=== PATIENT | male | born 1990 | race Caucasian/White ===

== ENCOUNTER 2021-05-15 05:31 | Inpatient (IN) | payer SELFPAY ==
[2021-05-15 06:00] VITALS: BMI 18.6
[2021-05-15] MEDS ORDERED: Dextrose 5 %-0.45 % NaCl 1,000 ML IV PRN (06:40)
[2021-05-15] MEDS ORDERED: D5 1/2 NS w/20 mEq KCL 1,000 ML IV PRN (06:40)
[2021-05-15] MEDS ORDERED: NS 0.9% w/ 20 MEQ KCL 1,000 ML IV PRN ×2 (06:40)
[2021-05-15] MEDS ORDERED: Sodium Chloride 0.9% 1,000 ML IV PRN ×4 (06:40)
[2021-05-15] MEDS ORDERED: Electrolyte Replacement Protocol 1 EACH IVPB SCH (06:40)
[2021-05-15] MEDS ORDERED: Morphine 2 MG/ML VIAL SLOW IVP PRN (06:41)
[2021-05-15] MEDS ORDERED: Morphine 4 MG/ML VIAL ONE (06:42)
[2021-05-15] MEDS ORDERED: HUMULIN R 100 UNITS in Sodium Chloride 0.9% 100 ML IVPB SCH (06:45)
[2021-05-15 07:29] LABS: Anion Gap 14 mmol/L (10-20); BUN (Urea Nitrogen) 5 mg/dL (8.9-20.6); Calc. Creatinine Clearance 135 mL/min (70-130); Calcium 8.6 mg/dL (7.8-10.44); Carbon Dioxide 10 mmol/L (22-29); Chloride 115 mmol/L (98-107); Glucose 169 mg/dL (70-105); Sodium 136 mmol/L (136-145)
[2021-05-15 07:34] LABS: Troponin I Less than 0.010 ng/mL (< 0.028)
[2021-05-15 07:44] LABS: Potassium 2.6 mmol/L (3.5-5.1)
[2021-05-15] MEDS ORDERED: Ondansetron PF 4 MG/2 ML Vial IVP PRN (08:07)
[2021-05-15] MEDS: Nicotine 21 MG PATCH TD SCH (08:36)
[2021-05-15 09:15] LABS: Hemoglobin 13.5 g/dL (14.0-18.0); Mean Corpuscular HGB CONC 35.1 g/dL (32.0-36.0); Mean Corpuscular Hemoglobin 34.9 pg (27.0-31.0); Mean Corpuscular Volume 99.5 fL (78.0-98.0); Mean Platelet Volume 10.5 fL (7.4-10.4); Platelet Count 169 thou/uL (130-400); RBC Distribution Width 12.3 % (11.5-14.5); Red Blood Cell (RBC) Count 3.85 mill/uL (4.70-6.10); White Blood Cell (WBC) Count 5.5 thou/uL (4.8-10.8)
[2021-05-15 09:44] LABS: Anion Gap 13 mmol/L (10-20); BUN (Urea Nitrogen) 6 mg/dL (8.9-20.6); Calc. Creatinine Clearance 135 mL/min (70-130); Calcium 8.4 mg/dL (7.8-10.44); Carbon Dioxide 10 mmol/L (22-29); Chloride 115 mmol/L (98-107); Glucose 231 mg/dL (70-105); Sodium 135 mmol/L (136-145)
[2021-05-15 09:46] LABS: Band 15 % (5-11); Eosinophils 3 % (0-10); Lymphocytes 10 % (21-51); MDiff Complete? YES; Metamyelocyte 1 % (0-0); Monocytes 15 % (0-10); Myelocyte 2 % (0-0); Neutrophil 54 % (42-75); Platelet Morphology Comment Appears Adequate; RBC Morphology Normal
[2021-05-15 09:55] LABS: Potassium 2.6 mmol/L (3.5-5.1)
[2021-05-15] MEDS ORDERED: Nitroglycerin 0.4 MG TAB (25 Tab Bottle) SL PRN (10:50)
[2021-05-15] MEDS ORDERED: Aspirin 325 MG TAB PO SCH (11:00)
[2021-05-15] MEDS ORDERED: Potassium Chloride 40 MEQ in Sodium Chloride 0.9% 250 ML 250 ML IVPB SCH (11:30)
[2021-05-15] MEDS ORDERED: Enoxaparin Sodium 40 MG/0.4 ML SYRINGE ONE (12:44)
[2021-05-15] MEDS ORDERED: Potassium Chloride 20 MEQ TAB ONE ×3 (12:44→20:24)
[2021-05-15] MEDS: Enoxaparin Sodium 40 MG/0.4 ML SYRINGE SC SCH (12:48)
[2021-05-15] MEDS ORDERED: Potassium Chloride 20 MEQ TAB PO SCH ×2 (13:00→16:00)
[2021-05-15] MEDS: Potassium Chloride 40 MEQ in Sodium Chloride 0.9% 250 ML 250 ML IVPB SCH ×2 (15:08→15:09)
[2021-05-15 15:36] LABS: ALT (SGPT) 9 U/L (8-55); AST (SGOT) 12 U/L (5-34); Albumin 3.3 g/dL (3.5-5.0); Alkaline Phosphatase 113 U/L (40-110); Anion Gap 12 mmol/L (10-20); BUN (Urea Nitrogen) 5 mg/dL (8.9-20.6); Bilirubin, Total 0.4 mg/dL (0.2-1.2); Calc. Creatinine Clearance 127 mL/min (70-130); Calcium 8.5 mg/dL (7.8-10.44); Carbon Dioxide 16 mmol/L (22-29); Chloride 112 mmol/L (98-107); Globulin 2.9 g/dL (2.4-3.5); Glucose 183 mg/dL (70-105); Protein, Total 6.2 g/dL (6.0-8.3); Sodium 137 mmol/L (136-145)
[2021-05-15 15:49] LABS: Potassium 2.9 mmol/L (3.5-5.1)
[2021-05-15] MEDS ORDERED: Aspirin 325 MG TAB ONE (17:33)
[2021-05-15] MEDS ORDERED: Dextrose 5% in Water 1,000 ML IV PRN (18:47)
[2021-05-15] MEDS ORDERED: Dextrose 50% Abboject 50 ML SYRINGE SLOW IVP PRN (18:47)
[2021-05-15 18:58] LABS: Anion Gap 7 mmol/L (10-20); BUN (Urea Nitrogen) 5 mg/dL (8.9-20.6); Calc. Creatinine Clearance 139 mL/min (70-130); Calcium 8.7 mg/dL (7.8-10.44); Carbon Dioxide 20 mmol/L (22-29); Chloride 112 mmol/L (98-107); Glucose 123 mg/dL (70-105); Sodium 136 mmol/L (136-145)
[2021-05-15] MEDS ORDERED: NPH, Human Insulin Isophane 300 UNIT/3 ML VIAL SC SCH (19:00)
[2021-05-15 19:01] LABS: Potassium 2.9 mmol/L (3.5-5.1)
[2021-05-15] MEDS: 1/2 NS w/KCL 20 mEq 1,000 ML IV SCH (19:18)
[2021-05-15] MEDS ORDERED: D5 1/2 NS w/20 mEq KCL 1,000 ML ONE (19:48)
[2021-05-15] MEDS ORDERED: INSULIN REGULAR IN 0.9 % NACL 100 UNIT/100 ML BAG ONE (20:13)
[2021-05-15] MEDS: Potassium Chloride 20 MEQ TAB PO SCH ×2 (20:21→23:36)
[2021-05-15] MEDS ORDERED: HumaLOG 300 UNITS/3 ML VIAL ONE (21:09)
[2021-05-15] MEDS: HumaLOG 300 UNITS/3 ML VIAL SC PRN (21:10)
[2021-05-15 23:47] LABS: Anion Gap 12 mmol/L (10-20); BUN (Urea Nitrogen) 5 mg/dL (8.9-20.6); Calc. Creatinine Clearance 133 mL/min (70-130); Calcium 8.6 mg/dL (7.8-10.44); Carbon Dioxide 17 mmol/L (22-29); Chloride 111 mmol/L (98-107); Glucose 173 mg/dL (70-105); Sodium 137 mmol/L (136-145)
[2021-05-15 23:54] LABS: Potassium 2.9 mmol/L (3.5-5.1)
[2021-05-16] MEDS: HumaLOG 300 UNITS/3 ML VIAL SC PRN ×4 (00:43→21:24)
[2021-05-16] MEDS: Potassium Chloride 40 MEQ in Sodium Chloride 0.9% 250 ML 250 ML IVPB SCH ×2 (00:43→06:04)
[2021-05-16] MEDS: 1/2 NS w/KCL 20 mEq 1,000 ML IV SCH ×3 (03:58→21:24)
[2021-05-16 04:35] LABS: Anion Gap 8 mmol/L (10-20); BUN (Urea Nitrogen) 5 mg/dL (8.9-20.6); Calc. Creatinine Clearance 129 mL/min (70-130); Calcium 8.8 mg/dL (7.8-10.44); Carbon Dioxide 21 mmol/L (22-29); Chloride 111 mmol/L (98-107); Glucose 213 mg/dL (70-105); Potassium 3.3 mmol/L (3.5-5.1); Sodium 137 mmol/L (136-145)
[2021-05-16] MEDS ORDERED: HumaLOG 300 UNITS/3 ML VIAL SC SCH (08:00)
[2021-05-16] MEDS: Aspirin 325 mg Enteric Coated Tablet PO SCH (08:38)
[2021-05-16] MEDS: Nicotine 21 MG PATCH TD SCH (08:40)
[2021-05-16] MEDS: Enoxaparin Sodium 40 MG/0.4 ML SYRINGE SC SCH (08:42)
[2021-05-16] MEDS ORDERED: Potassium Chloride 20 MEQ TAB PO SCH ×2 (08:45→13:15)
[2021-05-16] MEDS ORDERED: Potassium Chloride 40 MEQ in Sodium Chloride 0.9% 250 ML 250 ML IVPB SCH (08:45)
[2021-05-16] MEDS ORDERED: NPH, Human Insulin Isophane 300 UNIT/3 ML VIAL SC SCH (09:00)
[2021-05-16 12:52] LABS: Potassium 3.1 mmol/L (3.5-5.1)
[2021-05-16] MEDS: HumaLOG 300 UNITS/3 ML VIAL SC SCH (18:18)
[2021-05-17] MEDS: HumaLOG 300 UNITS/3 ML VIAL SC PRN ×2 (03:58→20:25)
[2021-05-17 04:27] LABS: Anion Gap 11 mmol/L (10-20); BUN (Urea Nitrogen) 5 mg/dL (8.9-20.6); Calc. Creatinine Clearance 124 mL/min (70-130); Calcium 8.8 mg/dL (7.8-10.44); Carbon Dioxide 25 mmol/L (22-29); Chloride 106 mmol/L (98-107); Glucose 254 mg/dL (70-105); Potassium 3.1 mmol/L (3.5-5.1); Sodium 139 mmol/L (136-145)
[2021-05-17] MEDS: 1/2 NS w/KCL 20 mEq 1,000 ML IV SCH ×3 (05:12→23:22)
[2021-05-17] MEDS ORDERED: Potassium Chloride 20 MEQ TAB PO SCH (06:45)
[2021-05-17] MEDS: Aspirin 325 mg Enteric Coated Tablet PO SCH (08:16)
[2021-05-17] MEDS: Enoxaparin Sodium 40 MG/0.4 ML SYRINGE SC SCH (08:17)
[2021-05-17] MEDS: HumaLOG 300 UNITS/3 ML VIAL SC SCH ×2 (08:47→17:46)
[2021-05-17 09:11] LABS: Hemoglobin A1c 12.7 % (4.0-6.0)
[2021-05-17] MEDS: Lantus 1000 UNITS/10 ML VIAL SC SCH (09:34)
[2021-05-17] MEDS: Nicotine 21 MG PATCH TD SCH (09:37)
[2021-05-18 04:11] LABS: Anion Gap 12 mmol/L (10-20); BUN (Urea Nitrogen) 8 mg/dL (8.9-20.6); Calc. Creatinine Clearance 137 mL/min (70-130); Calcium 8.7 mg/dL (7.8-10.44); Carbon Dioxide 25 mmol/L (22-29); Chloride 103 mmol/L (98-107); Glucose 184 mg/dL (70-105); Potassium 3.4 mmol/L (3.5-5.1); Sodium 137 mmol/L (136-145)
[2021-05-18] MEDS: 1/2 NS w/KCL 20 mEq 1,000 ML IV SCH (06:41)
[2021-05-18] MEDS: HumaLOG 300 UNITS/3 ML VIAL SC SCH (07:42)
[2021-05-18] MEDS: Enoxaparin Sodium 40 MG/0.4 ML SYRINGE SC SCH (07:42)
[2021-05-18] MEDS: Aspirin 325 mg Enteric Coated Tablet PO SCH (07:42)
[2021-05-18] MEDS: Lantus 1000 UNITS/10 ML VIAL SC SCH (07:43)
[2021-05-18] MEDS: Nicotine 21 MG PATCH TD SCH (09:37)
[2021-05-18 12:35] VITALS: BP 92/54; TEMP 98.6
[2021-05-18] MEDS: HumaLOG 300 UNITS/3 ML VIAL SC PRN (12:41)
[2021-05-18] MEDS ORDERED: Potassium Chloride 20 MEQ TAB PO SCH (13:45)
== END 2021-05-18 17:48 | disposition home or self-care (01) | DRG 638 ==
LOC: ERHOLD 05:31 → ONC 22:25
PROVIDERS: ADMIT Student in an Organized Health Care Education/Training Program; ATTEND Internal Medicine
DX: E10.10 Type 1 diabetes mellitus with ketoacidosis without coma (principal); F84.5 Asperger's syndrome; Z79.4 Long term (current) use of insulin; F17.210 Nicotine dependence, cigarettes, uncomplicated; E87.6 Hypokalemia; R07.81 Pleurodynia
CPT/HCPCS: 36415; 36416; 80048; 83036; 84484; 85025; 93005; 93010; J1650; J1815; J2270; J3480; J7050

== ENCOUNTER 2021-08-18 17:37 | Inpatient (IN) | payer SELFPAY ==
[2021-08-18 18:12] LABS: #Basophils 0.1 thou/uL (0.0-0.2); #Eosinphils 0.1 thou/uL (0.0-0.7); #Lymphocytes 1.2 thou/uL (1.20-3.40); #Monocytes 0.8 thou/uL (0.11-0.59); #Neutrophils 5.3 thou/uL (1.40-6.50); %Basophils 0.7 % (0.0-1.0); %Eosinophils 1.8 % (0.0-10.0); %Lymphocytes 15.4 % (21.0-51.0); %Monocytes 11.3 % (0.0-10.0); %Neutrophils 70.8 % (42.0-75.0); Hemoglobin 12.8 g/dL (14.0-18.0); Mean Corpuscular HGB CONC 35.7 g/dL (32.0-36.0); Mean Corpuscular Hemoglobin 33.7 pg (27.0-31.0); Mean Corpuscular Volume 94.3 fL (78.0-98.0); Mean Platelet Volume 8.8 fL (7.4-10.4); Platelet Count 218 thou/uL (130-400); RBC Distribution Width 12.4 % (11.5-14.5); Red Blood Cell (RBC) Count 3.81 mill/uL (4.70-6.10); White Blood Cell (WBC) Count 7.5 thou/uL (4.8-10.8)
[2021-08-18 18:34] LABS: ALT (SGPT) 8 U/L (8-55); AST (SGOT) 8 U/L (5-34); Alkaline Phosphatase 96 U/L (40-110); Anion Gap 15 mmol/L (10-20); BUN (Urea Nitrogen) 13 mg/dL (8.9-20.6); Bilirubin, Total 0.2 mg/dL (0.2-1.2); Calc. Creatinine Clearance 0 mL/min (70-130); Carbon Dioxide 10 mmol/L (22-29); Chloride 113 mmol/L (98-107); Glucose 166 mg/dL (70-105); Sodium 135 mmol/L (136-145)
[2021-08-18 18:40] LABS: Potassium 2.6 mmol/L (3.5-5.1)
[2021-08-18] MEDS ORDERED: D5 1/2 NS w/20 mEq KCL 1,000 ML ONE (18:57)
[2021-08-18] MEDS ORDERED: D5 1/2 NS w/20 mEq KCL 1,000 ML IV PRN (19:00)
[2021-08-18] MEDS ORDERED: Potassium Chloride 20 MEQ TAB ONE (19:39)
[2021-08-18] MEDS ORDERED: Sodium Chloride 0.9% 1,000 ML IV PRN (19:51)
[2021-08-18] MEDS ORDERED: Dextrose 5% in Water 1,000 ML IV PRN (19:51)
[2021-08-18] MEDS ORDERED: Electrolyte Replacement Protocol 1 EACH IVPB SCH (19:51)
[2021-08-18] MEDS ORDERED: Dextrose 50% Abboject 50 ML SYRINGE SLOW IVP PRN (19:51)
[2021-08-18] MEDS ORDERED: Dextrose 5 %-0.45 % NaCl 1,000 ML IV PRN (19:51)
[2021-08-18] MEDS ORDERED: Ondansetron PF 4 MG/2 ML Vial IVP PRN (19:53)
[2021-08-18] MEDS ORDERED: Acetaminophen 650 MG Suppository PR PRN (19:53)
[2021-08-18] MEDS ORDERED: Acetaminophen 325 MG TAB PO PRN (19:53)
[2021-08-18] MEDS ORDERED: Ondansetron ODT 4 MG TAB PO PRN (19:53)
[2021-08-18] MEDS ORDERED: Potassium Chloride 20 MEQ in Premix Bag 1 BAG IVPB SCH (20:00)
[2021-08-18] MEDS ORDERED: HUMULIN R 100 UNITS in Sodium Chloride 0.9% 100 ML IVPB SCH (20:00)
[2021-08-18 20:16] LABS: Lactic Acid 0.8 mmol/L (0.5-2.2)
[2021-08-18 20:21] LABS: Anion Gap 13 mmol/L (10-20); BUN (Urea Nitrogen) 11 mg/dL (8.9-20.6); Calc. Creatinine Clearance 0 mL/min (70-130); Calcium 7.9 mg/dL (7.8-10.44); Carbon Dioxide 13 mmol/L (22-29); Chloride 112 mmol/L (98-107); Glucose 169 mg/dL (70-105); Magnesium 1.8 mg/dL (1.6-2.6); Sodium 135 mmol/L (136-145)
[2021-08-18 20:24] LABS: Potassium 2.7 mmol/L (3.5-5.1)
[2021-08-18 20:25] LABS: Phosphorus Less than 1.0 mg/dL (2.3-4.7)
[2021-08-18] MEDS ORDERED: Potassium Chloride 20 MEQ TAB PO SCH (21:15)
[2021-08-18] MEDS: Sodium Chloride 0.9% 1,000 ML IV SCH (21:15)
[2021-08-18 21:48] VITALS: BMI 19.5
[2021-08-18 23:34] LABS: Anion Gap 18 mmol/L (10-20); BUN (Urea Nitrogen) 10 mg/dL (8.9-20.6); Calc. Creatinine Clearance 95 mL/min (70-130); Calcium 8.2 mg/dL (7.8-10.44); Chloride 112 mmol/L (98-107); Glucose 376 mg/dL (70-105); Potassium 3.9 mmol/L (3.5-5.1); Sodium 135 mmol/L (136-145)
[2021-08-18 23:40] LABS: Carbon Dioxide 9 mmol/L (22-29)
[2021-08-18] MEDS ORDERED: Potassium Phosphate 30 MMOL in Sodium Chloride 0.9% 250 ML 250 ML IVPB SCH (23:59)
[2021-08-19] MEDS: D5 1/2 NS w/20 mEq KCL 1,000 ML IV PRN ×2 (04:12→08:20)
[2021-08-19 04:32] LABS: Anion Gap 10 mmol/L (10-20); BUN (Urea Nitrogen) 8 mg/dL (8.9-20.6); Calc. Creatinine Clearance 121 mL/min (70-130); Calcium 8.4 mg/dL (7.8-10.44); Carbon Dioxide 15 mmol/L (22-29); Chloride 115 mmol/L (98-107); Glucose 193 mg/dL (70-105); Potassium 3.3 mmol/L (3.5-5.1); Sodium 137 mmol/L (136-145)
[2021-08-19] MEDS ORDERED: Potassium Chloride 20 MEQ TAB PO SCH (05:30)
[2021-08-19] MEDS: Sodium Chloride 0.9% 1,000 ML IV SCH ×2 (07:11→18:26)
[2021-08-19] MEDS ORDERED: Magnesium Sulfate 2 GM in Sodium Chloride 0.9% 100 ML IVPB SCH (09:00)
[2021-08-19] MEDS ORDERED: FLU VACC QS2021-22(6MOS UP)/PF 60 MCG/0.5 ML SYRINGE IM ONE (09:00)
[2021-08-19] MEDS ORDERED: Magnesium 2 GM/50 ML 2 GM in Premix Bag 1 BAG IVPB SCH (09:00)
[2021-08-19] MEDS ORDERED: cefTRIAXone Sodium 2,000 MG in Syringe 0 ML IVPB SCH (09:15)
[2021-08-19 09:47] LABS: Anion Gap 9 mmol/L (10-20); BUN (Urea Nitrogen) 6 mg/dL (8.9-20.6); Calc. Creatinine Clearance 136 mL/min (70-130); Calcium 8.3 mg/dL (7.8-10.44); Carbon Dioxide 17 mmol/L (22-29); Chloride 110 mmol/L (98-107); Glucose 243 mg/dL (70-105); Potassium 3.3 mmol/L (3.5-5.1); Sodium 133 mmol/L (136-145)
[2021-08-19] MEDS: cefTRIAXone\\ROCEPHIN 2 GM in Sodium Chloride 0.9% 100 ML IVPB SCH (10:05)
[2021-08-19] MEDS: Enoxaparin Sodium 40 MG/0.4 ML SYRINGE SC SCH (10:05)
[2021-08-19] MEDS: HumuLIN 70/30 (300 UNITS/3 ML VIAL) SC SCH ×2 (12:49→17:49)
[2021-08-19 12:50] LABS: Anion Gap 10 mmol/L (10-20); BUN (Urea Nitrogen) 6 mg/dL (8.9-20.6); Calc. Creatinine Clearance 130 mL/min (70-130); Calcium 8.2 mg/dL (7.8-10.44); Carbon Dioxide 18 mmol/L (22-29); Chloride 108 mmol/L (98-107); Glucose 295 mg/dL (70-105); Potassium 3.2 mmol/L (3.5-5.1); Sodium 133 mmol/L (136-145)
[2021-08-19 15:18] LABS: Anion Gap 8 mmol/L (10-20); BUN (Urea Nitrogen) 6 mg/dL (8.9-20.6); Calc. Creatinine Clearance 128 mL/min (70-130); Calcium 8.2 mg/dL (7.8-10.44); Carbon Dioxide 19 mmol/L (22-29); Chloride 108 mmol/L (98-107); Glucose 266 mg/dL (70-105); Potassium 3.1 mmol/L (3.5-5.1); Sodium 132 mmol/L (136-145)
[2021-08-19] MEDS ORDERED: Potassium Bicarbonate/Cit Ac 20 MEQ TAB PO SCH (17:15)
[2021-08-19] MEDS ORDERED: Dextrose 50% Abboject 50 ML SYRINGE SLOW IVP PRN (17:47)
[2021-08-19] MEDS ORDERED: Dextrose 5% in Water 1,000 ML IV PRN (17:47)
[2021-08-19 21:03] LABS: Anion Gap 9 mmol/L (10-20); BUN (Urea Nitrogen) 6 mg/dL (8.9-20.6); Calc. Creatinine Clearance 130 mL/min (70-130); Calcium 8.7 mg/dL (7.8-10.44); Carbon Dioxide 22 mmol/L (22-29); Chloride 107 mmol/L (98-107); Glucose 251 mg/dL (70-105); Potassium 3.4 mmol/L (3.5-5.1); Sodium 135 mmol/L (136-145)
[2021-08-20 06:55] LABS: Anion Gap 9 mmol/L (10-20); BUN (Urea Nitrogen) 6 mg/dL (8.9-20.6); Calc. Creatinine Clearance 123 mL/min (70-130); Calcium 8.8 mg/dL (7.8-10.44); Carbon Dioxide 25 mmol/L (22-29); Chloride 108 mmol/L (98-107); Glucose 158 mg/dL (70-105); Sodium 139 mmol/L (136-145)
[2021-08-20 07:02] LABS: Potassium 2.9 mmol/L (3.5-5.1)
[2021-08-20] MEDS ORDERED: Potassium Bicarbonate/Cit Ac 20 MEQ TAB PO SCH ×4 (07:30→19:30)
[2021-08-20] MEDS ORDERED: Potassium Chloride 20 MEQ TAB PO SCH (08:00)
[2021-08-20] MEDS: HumuLIN 70/30 (300 UNITS/3 ML VIAL) SC SCH ×2 (08:47→18:38)
[2021-08-20] MEDS: Enoxaparin Sodium 40 MG/0.4 ML SYRINGE SC SCH (08:47)
[2021-08-20] MEDS: Azithromycin 250 MG TAB PO SCH (08:49)
[2021-08-20] MEDS ORDERED: Levofloxacin 500 mg/D5W 100 ml Premix Bag ONE (10:08)
[2021-08-20] MEDS: cefTRIAXone\\ROCEPHIN 2 GM in Sodium Chloride 0.9% 100 ML IVPB SCH (10:44)
[2021-08-20] MEDS: HumaLOG 300 UNITS/3 ML VIAL SC PRN ×3 (12:35→20:28)
[2021-08-21 06:38] LABS: Anion Gap 12 mmol/L (10-20); BUN (Urea Nitrogen) 11 mg/dL (8.9-20.6); Calc. Creatinine Clearance 125 mL/min (70-130); Calcium 9.1 mg/dL (7.8-10.44); Carbon Dioxide 28 mmol/L (22-29); Chloride 103 mmol/L (98-107); Glucose 169 mg/dL (70-105); Potassium 3.2 mmol/L (3.5-5.1); Sodium 140 mmol/L (136-145)
[2021-08-21] MEDS ORDERED: Potassium Bicarbonate/Cit Ac 20 MEQ TAB PER TUBE SCH (07:00)
[2021-08-21] MEDS ORDERED: Potassium Bicarbonate/Cit Ac 20 MEQ TAB PO SCH ×2 (07:30→09:30)
[2021-08-21] MEDS: HumuLIN 70/30 (300 UNITS/3 ML VIAL) SC SCH (08:21)
[2021-08-21] MEDS: Azithromycin 250 MG TAB PO SCH (08:23)
[2021-08-21] MEDS: Enoxaparin Sodium 40 MG/0.4 ML SYRINGE SC SCH (08:24)
[2021-08-21 08:25] VITALS: TEMP 97.8
[2021-08-21 09:31] LABS: Potassium 3.2 mmol/L (3.5-5.1)
[2021-08-21] MEDS: cefTRIAXone\\ROCEPHIN 2 GM in Sodium Chloride 0.9% 100 ML IVPB SCH (10:10)
[2021-08-21] MEDS: HumaLOG 300 UNITS/3 ML VIAL SC PRN (11:47)
[2021-08-21 11:59] LABS: Potassium 4.7 mmol/L (3.5-5.1)
[2021-08-21 15:18] VITALS: BP 109/74
[2021-08-21] MEDS ORDERED: HumuLIN 70/30 (300 UNITS/3 ML VIAL) SC SCH (18:30)
[2021-08-21] MEDS ORDERED: Cefuroxime Axetil 250 MG TAB PO SCH (21:00)
== END 2021-08-21 15:42 | disposition home or self-care (01) | DRG 637 ==
LOC: ERS 17:37 → IMCU/EMU 19:31 → T4-A 08-19 20:08
PROVIDERS: ADMIT Internal Medicine; ATTEND Hospitalist
DX: E10.10 Type 1 diabetes mellitus with ketoacidosis without coma (principal); J18.9 Pneumonia, unspecified organism; E87.6 Hypokalemia; Z20.822 Contact with and (suspected) exposure to COVID-19; F17.210 Nicotine dependence, cigarettes, uncomplicated; N20.0 Calculus of kidney; J20.9 Acute bronchitis, unspecified; Z79.4 Long term (current) use of insulin; Z91.14 Patient's other noncompliance with medication regimen
CPT/HCPCS: 36415; 36416; 80048; 83605; 83735; 84100; J0696; J1650; J1815; J1956; J3475; J3480; J3490; J7050

== ENCOUNTER 2022-09-19 13:22 | Inpatient (IN) | payer OTHER, SELFPAY ==
[2022-09-19 14:17] LABS: Bacteria/HPF None Seen HPF (None Seen); Bilirubin Negative (Negative); Blood, Urine Negative (Negative); Clarity Clear (Clear); Glucose, Urine (Dipstick) Greater than 1000 mg/dL (Negative); Ketone, Urine Greater than 150 mg/dL (Negative); Leukocyte Negative Leu/uL (Negative); Nitrite Negative (Negative); Protein, Urine (Dipstick) 50 mg/dL (Neg-Trace); RBC/HPF 0-3 HPF (0-3); Squamous Epithelial None Seen HPF (0-3); Urobilinogen Normal mg/dL (Less than 2); WBC/HPF 0-3 HPF (0-3); pH, Urine 5.5 (5.0-9.0)
[2022-09-19 14:24] LABS: #Basophils 0.1 thou/uL (0.0-0.2); #Lymphocytes 0.8 thou/uL (1.20-3.40); #Monocytes 0.2 thou/uL (0.11-0.59); #Neutrophils 4.9 thou/uL (1.40-6.50); %Basophils 1.1 % (0.0-1.0); %Eosinophils 0.6 % (0.0-10.0); %Lymphocytes 13.4 % (21.0-51.0); %Monocytes 3.6 % (0.0-10.0); %Neutrophils 81.2 % (42.0-75.0); Hemoglobin 16.1 g/dL (14.0-18.0); Mean Corpuscular Hemoglobin 32.3 pg (27.0-31.0); Mean Corpuscular Volume 92.2 fl (78.0-98.0); Mean Platelet Volume 11.7 fL (7.4-10.4); Platelet Count 148 10x3/uL (130-400); RBC Distribution Width 11.4 % (11.5-14.5); Red Blood Cell (RBC) Count 4.98 mill/uL (4.70-6.10)
[2022-09-19 14:28] LABS: ALT (SGPT) 25 U/L (8-55); AST (SGOT) 21 U/L (5-34); Albumin 4.5 g/dL (3.5-5.0); Alkaline Phosphatase 81 U/L (40-110); Anion Gap 24 mmol/L (10-20); BUN (Urea Nitrogen) 12 mg/dL (8.9-20.6); Bilirubin, Total 0.5 mg/dL (0.2-1.2); CK (CPK) 119 U/L (30-200); Calc. Creatinine Clearance 0 mL/min (70-130); Calcium 8.5 mg/dL (7.8-10.44); Chloride 106 mmol/L (98-107); Estimated GFR 75; Glucose 339 mg/dL (70-105); Lipase 16 U/L (8-78); Potassium 4.7 mmol/L (3.5-5.1); Protein, Total 7.5 g/dL (6.0-8.3); Sodium 133 mmol/L (136-145)
[2022-09-19 14:38] LABS: Carbon Dioxide 8 mmol/L (22-29)
[2022-09-19] MEDS ORDERED: INSULIN REGULAR IN 0.9 % NACL 100 UNIT/100 ML BAG ONE (15:16)
[2022-09-19] MEDS ORDERED: NS 0.9% w/ 20 MEQ KCL 1,000 ML ONE (15:34)
[2022-09-19] MEDS ORDERED: Acetaminophen 325 MG TAB PO PRN (16:19)
[2022-09-19] MEDS ORDERED: NS 0.9% w/ 20 MEQ KCL 1,000 ML IV PRN ×2 (16:22)
[2022-09-19] MEDS ORDERED: Electrolyte Replacement Protocol 1 EACH IVPB SCH (16:22)
[2022-09-19] MEDS ORDERED: Dextrose 5 %-0.45 % NaCl 1,000 ML IV PRN (16:22)
[2022-09-19] MEDS ORDERED: Sodium Chloride 0.9% 1,000 ML IV PRN ×4 (16:22)
[2022-09-19] MEDS ORDERED: HUMULIN R 100 UNITS in Sodium Chloride 0.9% 100 ML IVPB SCH (16:30)
[2022-09-19 16:55] LABS: SARS-CoV-2 NAA Rapid Test Not Detected (NotDetected)
[2022-09-19 17:01] LABS: BUN (Urea Nitrogen) 10 mg/dL (8.9-20.6); Calc. Creatinine Clearance 0 mL/min (70-130); Calcium 8.1 mg/dL (7.8-10.44); Chloride 112 mmol/L (98-107); Estimated GFR 90; Glucose 247 mg/dL (70-105); Potassium 4.5 mmol/L (3.5-5.1); Sodium 133 mmol/L (136-145)
[2022-09-19 17:07] LABS: Carbon Dioxide Less than 8 mmol/L (22-29)
[2022-09-19] MEDS ORDERED: FLU VACC QS2022-23(6MOS UP)/PF 60 MCG/0.5 ML SYRINGE IM ONE (17:45)
[2022-09-19] MEDS: D5 1/2 NS w/20 mEq KCL 1,000 ML IV PRN ×2 (17:55→21:52)
[2022-09-19 21:10] LABS: Anion Gap 14 mmol/L (10-20); BUN (Urea Nitrogen) 8 mg/dL (8.9-20.6); Calc. Creatinine Clearance 94 mL/min (70-130); Calcium 8.2 mg/dL (7.8-10.44); Carbon Dioxide 13 mmol/L (22-29); Chloride 112 mmol/L (98-107); Estimated GFR 99; Glucose 154 mg/dL (70-105); Potassium 3.5 mmol/L (3.5-5.1); Sodium 135 mmol/L (136-145)
[2022-09-19] MEDS: Famotidine 20 MG TAB PO SCH (21:10)
[2022-09-20 01:59] LABS: Anion Gap 7 mmol/L (10-20); BUN (Urea Nitrogen) 8 mg/dL (8.9-20.6); Calc. Creatinine Clearance 107 mL/min (70-130); Calcium 8.5 mg/dL (7.8-10.44); Carbon Dioxide 16 mmol/L (22-29); Chloride 116 mmol/L (98-107); Estimated GFR 116; Glucose 145 mg/dL (70-105); Potassium 3.8 mmol/L (3.5-5.1); Sodium 135 mmol/L (136-145)
[2022-09-20] MEDS: D5 1/2 NS w/20 mEq KCL 1,000 ML IV PRN ×2 (02:29→06:18)
[2022-09-20 04:02] LABS: Anion Gap 10 mmol/L (10-20); BUN (Urea Nitrogen) 7 mg/dL (8.9-20.6); Calc. Creatinine Clearance 104 mL/min (70-130); Calcium 8.2 mg/dL (7.8-10.44); Carbon Dioxide 15 mmol/L (22-29); Chloride 112 mmol/L (98-107); Estimated GFR 112; Glucose 196 mg/dL (70-105); Potassium 3.8 mmol/L (3.5-5.1); Sodium 133 mmol/L (136-145)
[2022-09-20] MEDS: Famotidine 20 MG TAB PO SCH ×2 (08:22→21:37)
[2022-09-20 12:24] LABS: Anion Gap 11 mmol/L (10-20); BUN (Urea Nitrogen) 6 mg/dL (8.9-20.6); Calc. Creatinine Clearance 116 mL/min (70-130); Calcium 8.6 mg/dL (7.8-10.44); Carbon Dioxide 16 mmol/L (22-29); Chloride 112 mmol/L (98-107); Estimated GFR 120; Glucose 162 mg/dL (70-105); Potassium 3.8 mmol/L (3.5-5.1); Sodium 135 mmol/L (136-145)
[2022-09-20] MEDS ORDERED: Dextrose 5% in Water 1,000 ML IV PRN (13:52)
[2022-09-20] MEDS ORDERED: Dextrose 50% Abboject 50 ML SYRINGE SLOW IVP PRN (13:52)
[2022-09-20] MEDS ORDERED: HumaLOG 300 UNITS/3 ML VIAL SC PRN (13:52)
[2022-09-20 15:22] VITALS: BMI 19.8
[2022-09-20] MEDS ORDERED: Insulin Glargine 30 UNITS/0.3 ML VIAL SC SCH (21:00)
[2022-09-21 08:29] LABS: Anion Gap 8 mmol/L (10-20); BUN (Urea Nitrogen) 6 mg/dL (8.9-20.6); Calc. Creatinine Clearance 100 mL/min (70-130); Calcium 8.7 mg/dL (7.8-10.44); Carbon Dioxide 24 mmol/L (22-29); Chloride 110 mmol/L (98-107); Estimated GFR 105; Glucose 266 mg/dL (70-105); Potassium 3.7 mmol/L (3.5-5.1); Sodium 138 mmol/L (136-145)
[2022-09-21] MEDS: Famotidine 20 MG TAB PO SCH (08:48)
[2022-09-21] MEDS ORDERED: Insulin Glargine 30 UNITS/0.3 ML VIAL SC SCH (09:15)
[2022-09-21 09:40] VITALS: BP 124/75; TEMP 98
== END 2022-09-21 13:15 | disposition home or self-care (01) | DRG 638 ==
LOC: ERS 13:22 → IMCU/EMU 16:44 → T4-A 09-20 18:43
PROVIDERS: ADMIT Internal Medicine; ATTEND Internal Medicine
DX: E10.10 Type 1 diabetes mellitus with ketoacidosis without coma (principal); N17.9 Acute kidney failure, unspecified; Z20.822 Contact with and (suspected) exposure to COVID-19; F17.210 Nicotine dependence, cigarettes, uncomplicated; E86.0 Dehydration; Z91.14 Patient's other noncompliance with medication regimen; Z79.4 Long term (current) use of insulin; Z79.899 Other long term (current) drug therapy; Z87.442 Personal history of urinary calculi
CPT/HCPCS: 36415; 36416; 71045; 80048; 80053; 81003; 81015; 82010; 82550; 83690; 83880; 83930; 84484; 85025; 93005; 96365; J1650; J1815; J3480; U0002